=== PATIENT | male | born 1975 | race Hispanic/Latino ===

== ENCOUNTER 2018-01-28 00:08 | Emergency (ER) | payer BC, OTHER ==
--- NOTE | 2018-01-28 00:13 | ED PDOC ---
Arrival/HPI - General Time Seen by Provider: 01/28/18 00:09 Historian: Patient - History of Present Illness Narrative History of Present Illness (Text): 01/28/18 00:13 Lewis Murcia is a 42 year old male who presents to the Emergency department complaining of right shoulder pain for the past 3 days. Patient states he has been experiencing worsening right shoulder pain, described as a throbbing sensation which is worsened with movement. Patient denies any weakness/numbness/ tingling in the extremity, recent trauma/injury, chest pain, shortness of breath , back pain, neck pain, or any other complaints. Symptom Onset: Gradual Symptom Course: Unchanged Quality: Throbbing Activities at Onset: Light Context: Home Past Medical History - Provider Review Nursing Documentation Reviewed: Yes - Cardiac Hx Cardiac Disorders: No - Pulmonary Hx Respiratory Disorders: No - Neurological Hx Neurological Disorder: No - HEENT Hx HEENT Disorder: No - Renal Hx Renal Disorder: No - Endocrine/Metabolic Hx Endocrine Disorders: No - Hematological/Oncological Hx Blood Disorders: No - Integumentary Hx Dermatological Disorder: No - Musculoskeletal/Rheumatological Hx Musculoskeletal Disorders: No - Gastrointestinal Hx Gastrointestinal Disorders: No - Genitourinary/Gynecological Hx Genitourinary Disorders: No - Psychiatric Hx Psychophysiologic Disorder: Yes Hx Depression: Yes Hx Substance Use: No - Surgical History Hx Gastric Bypass Surgery: Yes Family/Social History - Physician Review Nursing Documentation Reviewed: Yes Family/Social History: Unknown Family HX Smoking Status: Current Some Days Smoker Hx Alcohol Use: No Hx Substance Use: No Allergies/Home Meds Allergies/Adverse Reactions: Allergies No Known Allergies Allergy (Verified 07/06/15 16:02) Home Medications: Home Meds Medication Instructions Recorded Confirmed Paroxetine HCl [Paxil] 40 mg PO DAILY 07/06/15 01/28/18 buPROPion [Wellbutrin] 300 mg PO DAILY 07/06/15 01/28/18 Review of Systems - Physician Review All systems were reviewed & negative as marked: Yes - Review of Systems Constitutional: Normal. absent: Fevers Eyes: Normal ENT: Normal Respiratory: Normal. absent: SOB, Cough Cardiovascular: Normal. absent: Chest Pain Gastrointestinal: Normal. absent: Abdominal Pain, Diarrhea, Nausea, Vomiting Genitourinary Male: Normal. absent: Dysuria, Frequency, Hematuria, Urinary Output Changes Musculoskeletal: Arthralgias (+right shoulder pain). absent: Back Pain, Neck Pain Skin: Normal. absent: Rash Neurological: Normal. absent: Headache, Dizziness Endocrine: Normal Hemo/Lymphatic: Normal Psychiatric: Normal Physical Exam Vital Signs Reviewed: Yes Vital Signs Temp Pulse Resp BP Pulse Ox 01/28/18 01:15 88 16 132/79 100 01/28/18 00:22 98.1 F 71 18 141/73 100 Temperature: Afebrile Blood Pressure: Normal Pulse: Regular Respiratory Rate: Normal Appearance: Positive for: Well-Appearing, Non-Toxic, Comfortable Pain Distress: None Mental Status: Positive for: Alert and Oriented X 3 - Systems Exam Head: Present: Atraumatic, Normocephalic Pupils: Present: PERRL Extroacular Muscles: Present: EOMI Conjunctiva: Present: Normal Mouth: Present: Moist Mucous Membranes Neck: Present: Normal Range of Motion Upper Extremity: Present: Normal ROM, NORMAL PULSES, Tenderness (Pain with abduction of right shoulder), Neurovascularly Intact, Capillary Refill < 2s. No : Cyanosis, Edema, Swelling, Erythema, Temperature Abnormalties, Deformity Neurological: Present: GCS=15, CN II-XII Intact, Speech Normal Skin: Present: Warm, Dry, Normal Color. No: Rashes Psychiatric: Present: Alert, Oriented x 3, Normal Insight, Normal Concentration Medical Decision Making ED Course and Treatment: 01/28/18 00:13 Impression: 42 year old male complaining of right shoulder pain for the past 3 days. Plan: -- XR Right Shoulder -- Marcaine -- Kenalog -- Reassess and disposition Progress Notes: 01/28/18 00:45 PROCEDURE: Shoulder Joint Injection Performed by the emergency provider Indication : Pain control Location: Right Shoulder Informed Consent and Counseling: The procedure, alternative treatment options, risks, and benefits were thoroughly explained to the patient and informed consent was obtained. Appropriate equipment and medications were set up. Timeout: A timeout to verify the correct patient, procedure, and site was performed immediately prior to the procedure. Preparation: Hand hygiene performed. The area prepped and draped in the usual sterile fashion and was cleansed with Betadine. Procedure: 3.5 ml of Marcaine and 1ml of Kenalog in a needle of appropriate length and gauge were injected into the joint using anterior approach. Gentle aspiration before injection did not show any blood. Estimated blood loss was less than 0.5 cc. Post-Procedure: The patient tolerated the procedure well, and there were no complications. A dressing was applied to the area. Anticipatory guidance, as well as standard post-procedure care, was explained. Return precautions were given. 01/28/18 01:00 XR Right Shoulder reviewed, shows calcific tendonitis. On re-evaluation, patient feels better and is in no acute distress. I have discussed the results and plan with the patient, who expresses understanding. Patient in agreement with plan to be discharged home. Patient is stable for discharge. Patient was instructed to follow up with physician or return if symptoms worsen or new concerning symptoms arise. - RAD Interpretation Radiology Orders: 01/28/18 00:21 SHOULDER RIGHT [RAD] Stat - Medication Orders Current Medication Orders: Discontinued Medications Bupivacaine HCl (Marcaine 0.5%) 5 ml IJ STAT STA Stop: 01/28/18 00:19 Last Admin: 01/28/18 00:43 Dose: 5 ml Ketorolac Tromethamine (Toradol) 15 mg IM ONCE ONE Stop: 01/28/18 00:15 Last Admin: 01/28/18 00:30 Dose: 15 mg MAR Pain Assessment Document 01/28/18 00:30 CNR (Rec: 01/28/18 00:30 CNR [id number]) Pain Reassessment Is this a pain reassessment? No IM Administration Charges Document 01/28/18 00:30 CNR (Rec: 01/28/18 00:30 CNR [id number]) Injection Site MAR Injection Site Left Deltoid Charges for Administration # of IM Administrations 1 Triamcinolone Acetonide (Kenalog-40 Inj) 10 mg IM ONCE ONE Stop: 01/28/18 00:31 Last Admin: 01/28/18 00:43 Dose: 10 mg Comments: administered by IM Administration Charges Document 01/28/18 00:43 CNR (Rec: 01/28/18 00:44 CNR [id number]) Charges for Administration # of IM Administrations 1 - Scribe Statement The provider has reviewed the documentation as recorded by the Kaiaibелена Bolden Provider Scribe Attestation: All medical record entries made by the Scribe were at my direction and personally dictated by me. I have reviewed the chart and agree that the record accurately reflects my personal performance of the history, physical exam, medical decision making, and the department course for this patient. I have also personally directed, reviewed, and agree with the discharge instructions and disposition. Disposition/Present on Arrival - Present on Arrival Any Indicators Present on Arrival: No History of DVT/PE: No History of Uncontrolled Diabetes: No Urinary Catheter: No History Surgical Site Infection Following: None - Disposition Have Diagnosis and Disposition been Completed?: Yes Diagnosis: Calcific bursitis of shoulder Disposition: HOME/ ROUTINE Disposition Time: 01:15 Condition: IMPROVED Discharge Instructions (ExitCare): Shoulder Bursitis (DC), Calcific Tendonitis of the Shoulder (DC) Referrals: Elizabeth Rizvi MD [Primary Care Provider] - Follow up with primary Forms: [facility] (Danish)
[2018-01-28 00:14] VITALS: BMI 30.7
[2018-01-28] MEDS ORDERED: TRIAMCINOLONE ACETON IM ONE (00:15)
[2018-01-28] MEDS ORDERED: Bupivacaine 0.5% Inj(30mL) IJ STA (00:18)
[2018-01-28 00:23] VITALS: TEMP 98.1; O2SAT 100
[2018-01-28] MEDS ORDERED: Triamcinolone Acetonide 40 mg/mL Inj IM ONE (00:30)
[2018-01-28 01:16] VITALS: BP 132/79; PULSE 88; RESP 16
--- NOTE | 2018-01-28 09:24 | RAD ---
Date of service: 01/28/2018 PROCEDURE: Radiographs of the Right Shoulder HISTORY: Pain COMPARISON: No prior. FINDINGS: BONES: Bone alignment and mineralization are normal. There is no acute displaced fracture or bone destruction. JOINTS: Normal. Glenohumeral and acromioclavicular joints preserved. No osteoarthritis. SOFT TISSUES: NormalThere are lobular calcifications posterior to the humeral head. OTHER FINDINGS: None. IMPRESSION: No acute fracture or dislocation. Lobular periarticular calcifications may represent calcific tendinitis in the appropriate clinical setting.
== END 2018-01-28 01:15 | disposition home or self-care (01) ==
LOC: ED 00:08
DX: M75.51 Bursitis of right shoulder (principal)
CPT/HCPCS: 20610; 73030; 96372; 99284; J1885; J3301

== ENCOUNTER 2018-06-15 20:55 | Emergency (ER) | payer BC ==
[2018-06-15 20:55] VITALS: BMI 30.7
[2018-06-15 21:07] VITALS: RESP 16; TEMP 98.4
--- NOTE | 2018-06-15 21:25 | ED PDOC ---
Arrival/HPI - General Chief Complaint: Trauma Time Seen by Provider: 06/15/18 20:58 Historian: Patient - History of Present Illness Narrative History of Present Illness (Text): 06/15/18 21:22 43 year old male, whose past medical history includes appendectomy and gastric bypass, presents to the emergency department with left sided chest pain, status post injury. Patient states he was ice skating when he fell unto his side. He reports landing on his left arm and left ribcage hearing some audible snaps. He denies any head injury, neck pain, back pain or loss of consciousness. The patient states he had some difficulty breathing worsened with deep inspiration and stabbing pain to the left side after the fall. Patient denies any hemoptysis, bruising, cuts, nausea, vomiting, or any other complaints. PMD: Dr Rizvi Time/Duration: Prior to Arrival Symptom Onset: Sudden Symptom Course: Intermittent Quality: Stabbing Activities at Onset: Rest Context: Exertion Past Medical History - Provider Review Nursing Documentation Reviewed: Yes - Travel History Have you recently traveled outside [place] w/in the past 3 mons?: No - Cardiac Hx Cardiac Disorders: No - Pulmonary Hx Respiratory Disorders: No - Neurological Hx Neurological Disorder: No - HEENT Hx HEENT Disorder: No - Renal Hx Renal Disorder: No - Endocrine/Metabolic Hx Endocrine Disorders: No - Hematological/Oncological Hx Blood Disorders: No - Integumentary Hx Dermatological Disorder: No - Musculoskeletal/Rheumatological Hx Musculoskeletal Disorders: No - Gastrointestinal Hx Gastrointestinal Disorders: No - Genitourinary/Gynecological Hx Genitourinary Disorders: No - Psychiatric Hx Psychophysiologic Disorder: Yes Hx Depression: Yes Hx Substance Use: No - Surgical History Hx Gastric Bypass Surgery: Yes - Anesthesia Hx Anesthesia: No Family/Social History - Physician Review Nursing Documentation Reviewed: Yes Family/Social History: No Known Family HX Smoking Status: Current Some Days Smoker Hx Alcohol Use: No Hx Substance Use: No Allergies/Home Meds Allergies/Adverse Reactions: Allergies No Known Allergies Allergy (Verified 06/15/18 20:59) Home Medications: Home Meds Medication Instructions Recorded Confirmed Paroxetine HCl [Paxil] 40 mg PO DAILY 07/06/15 06/15/18 buPROPion [Wellbutrin] 300 mg PO DAILY 07/06/15 06/15/18 Review of Systems - Physician Review All systems were reviewed & negative as marked: Yes - Review of Systems Respiratory: SOB. absent: Cough (no cough; no hemoptysis) Cardiovascular: Chest Pain (left ribs) Gastrointestinal: absent: Nausea, Vomiting Skin: absent: Laceration, Other (no bruising) Physical Exam Vital Signs Reviewed: Yes Vital Signs Temp Pulse Resp BP Pulse Ox 06/15/18 21:06 98.4 F 91 H 16 131/78 97 Temperature: Afebrile Blood Pressure: Normal Pulse: Regular Respiratory Rate: Normal Appearance: Positive for: Well-Appearing, Non-Toxic, Comfortable Pain Distress: None Mental Status: Positive for: Alert and Oriented X 3 - Systems Exam Head: Present: Atraumatic, Normocephalic Pupils: Present: PERRL Extroacular Muscles: Present: EOMI Conjunctiva: Present: Normal Mouth: Present: Moist Mucous Membranes Neck: Present: Normal Range of Motion Respiratory/Chest: Present: Clear to Auscultation, Good Air Exchange, Tender to Palpation (tenderness to palpation of the L anterior chest wall extending to axilla. ), Other (Symmetric chest wall movement. No paradoxical chest wall movement noted). No: Respiratory Distress, Accessory Muscle Use Cardiovascular: Present: Regular Rate and Rhythm, Normal S1, S2. No: Murmurs Abdomen: Present: Tenderness (tenderness to the left flank: ribs). No: Distention, Peritoneal Signs Back: Present: Normal Inspection Upper Extremity: Present: Normal Inspection. No: Cyanosis, Edema, Tenderness (no tenderness to the left arm) Lower Extremity: Present: Normal Inspection. No: Edema Neurological: Present: GCS=15, CN II-XII Intact, Speech Normal Skin: Present: Warm, Dry, Normal Color. No: Rashes, Laceration, Abrasion, Other (ecchymosis) Psychiatric: Present: Alert, Oriented x 3, Normal Insight, Normal Concentration Medical Decision Making ED Course and Treatment: 06/15/18 21:38 Impression: 43 year old male presents with chest pain status post trauma Differential Diagnoses Include But Are Not Limited To: --Rib Fracture --Pneumothorax --Chest wall contusion Plan: -- Chest X-ray -- Valium -- Toradol -- Reassess and disposition Prior Visits: Notes and results from previous visits were reviewed. Progress Notes: 06/15/18 22:00 Review of CXR shows misalignment of left anterior rib contour suggestive of rib fracture. Patient updated on findings and advised to continue conservative management at home with analgesics and incentive spirometry. He demonstrates understanding and will follow up with his PCP. Scripts provided. He is stable for discharge. - RAD Interpretation Radiology Orders: 06/15/18 21:09 CHEST PORTABLE [RAD] Stat - Medication Orders Current Medication Orders: Discontinued Medications Diazepam (Valium) 5 mg PO ONCE ONE; Protocol Stop: 06/15/18 21:10 Ketorolac Tromethamine (Toradol) 60 mg IM STAT STA Stop: 06/15/18 21:10 - Scribe Statement The provider has reviewed the documentation as recorded by the Scribe Manohar Toro Provider Scribe Attestation: All medical record entries made by the Scribe were at my direction and personally dictated by me. I have reviewed the chart and agree that the record accurately reflects my personal performance of the history, physical exam, medical decision making, and the department course for this patient. I have also personally directed, reviewed, and agree with the discharge instructions and disposition. Disposition/Present on Arrival - Present on Arrival Any Indicators Present on Arrival: No History of DVT/PE: No History of Uncontrolled Diabetes: No Urinary Catheter: No History of Decub. Ulcer: No History Surgical Site Infection Following: None - Disposition Have Diagnosis and Disposition been Completed?: Yes Diagnosis: Rib fractures, Fall Disposition: HOME/ ROUTINE Disposition Time: 21:53 Patient Plan: Discharge Condition: STABLE Discharge Instructions (ExitCare): Rib Fracture (DC) Print Language: JORDANIAN Additional Instructions: All medical record entries made by the Scribe were at my direction and personally dictated by me. I have reviewed the chart and agree that the record accurately reflects my personal performance of the history, physical exam, medical decision making, and the department course for this patient. I have also personally directed, reviewed, and agree with the discharge instructions and disposition. Please use incentive spirometry at least twice a day Please do not operate any machinery for 4 hours after taking Valium or Percocet Prescriptions: oxyCODONE/Acetaminophen [Percocet 5/325 mg Tab] 1 ea PO PRN PRN #6 tab PRN Reason: Pain, Severe (8-10) Forms: [facility] (Welsh), WORK NOTE
[2018-06-15 22:03] VITALS: BP 117/82; PULSE 69; O2SAT 100
--- NOTE | 2018-06-16 10:04 | RAD ---
Date of service: 06/15/2018 HISTORY: rib pain COMPARISON: No prior. TECHNIQUE: Chest PA and lateral FINDINGS: LUNGS: No active pulmonary disease. PLEURA: No significant pleural effusion identified. No pneumothorax apparent. CARDIOVASCULAR: No aortic atherosclerotic calcification present. Normal cardiac size. No pulmonary vascular congestion. OSSEOUS STRUCTURES: No significant abnormalities. VISUALIZED UPPER ABDOMEN: Normal. OTHER FINDINGS: None. IMPRESSION: No active disease.
== END 2018-06-15 22:03 | disposition home or self-care (01) ==
LOC: ED 20:55
DX: S22.39XA Fracture of one rib, unspecified side, initial encounter for closed fracture (principal); W01.0XXA Fall on same level from slipping, tripping and stumbling without subsequent striking against object, initial encounter; Y93.21 Activity, ice skating; Y92.838 Other recreation area as the place of occurrence of the external cause
CPT/HCPCS: 71046; 96372; 99284; J1885